=== PATIENT | male | born 1960 | race Hispanic/Latino ===

== ENCOUNTER 2024-12-15 18:17 | Inpatient (IN) | payer SELFPAY ==
[~2024-12-15] VITALS: Ht 160 cm; Wt 63.5 kg
[2024-12-15] MEDS ORDERED: SODIUM CHLORIDE FLUSH 10 ML SYR IV PRN (19:00)
[2024-12-15 19:07] LABS: BASOPHILS % 0.2 % (0.0-1.0); EOSINOPHILS % 0.1 % (0.0-6.0); HEMATOCRIT 47.1 % (38.2-49.6); HEMOGLOBIN 16.5 g/dL (14.0-18.0); LYMPHOCYTES # (AUTO) 1.7 (1.0-3.2); LYMPHOCYTES % 10.1 % (18.0-39.1); MEAN CORPUSCULAR HEMOGLOBIN 31.7 pg (28-32); MEAN CORPUSCULAR VOLUME 90.6 fL (81-99); MONOCYTES # (AUTO) 1.1 (0.2-0.8); MONOCYTES % 6.4 % (4.4-11.3); NEUTROPHILS # (AUTO) 14.3 (2.1-6.9); NEUTROPHILS % 82.9 % (38.7-80.0); PLATELET COUNT 399 x10e3/uL (140-360); RED CELL DISTRIBUTION WIDTH 13.1 % (11.7-14.4); WHITE BLOOD COUNT 17.21 x10e3/uL (4.8-10.8)
[2024-12-15] MEDS: ONDANSETRON HCL INJ 2MG/ML 2ML 2 MG/ML VIAL IV STA (19:11)
[2024-12-15] MEDS: SODIUM CHLORIDE 0.9% 1000ML 1,000 ML IV ONE (19:11)
[2024-12-15 19:24] LABS: ALBUMIN 4.3 g/dL (3.5-5.0); ANION GAP 18.7 mmol/L (8-16); BILIRUBIN,TOTAL 1.5 mg/dL (0.2-1.2); CALCIUM 10.2 mg/dL (8.4-10.2); CREATININE, SERUM 0.97 mg/dL (0.72-1.25); POTASSIUM 3.7 mmol/L (3.5-5.1); TOTAL PROTEIN 8.6 g/dL (6.5-8.1)
[2024-12-15 21:17] LABS: BILIRUBIN,URINE NEGATIVE (NEGATIVE); CLARITY,URINE CLEAR (CLEAR); COLOR,URINE YELLOW (YELLOW); GLUCOSE, URINE NEGATIVE (NEGATIVE); KETONES,URINE NEGATIVE (NEGATIVE); LEUKOCYTE ESTERASE ,URINE NEGATIVE (NEGATIVE); NITRITE,URINE NEGATIVE (NEGATIVE); PH,URINE 8.5 (5 - 7); PROTEIN,URINE DIPSTICK 1+ (NEGATIVE); URINE UROBILINOGEN 0.2 mg/dL (0.2 - 1)
[2024-12-15] MEDS ORDERED: IOPAMIDOL 370 MG/ML 100 ML INFUS..BTL INJ ONE (21:17)
[2024-12-15 21:19] LABS: BACTERIA,URINE RARE /HPF; EPITHELIAL CELLS,URINE FEW /LPF; HYALINE CASTS 0-1 (0-1); MUCUS,URINE FEW; RBC,URINE 0-5 /HPF (0-5); WBC,URINE (MAN) 0-5 /HPF (0-5)
[2024-12-15 21:53] VITALS: TEMP 98.7
[2024-12-15 22:00] VITALS: PULSE 95; RESP 18; O2SAT 100
[2024-12-15] MEDS ORDERED: ONDANSETRON HCL INJ 2MG/ML 2ML 2 MG/ML VIAL IV PRN (22:00)
[2024-12-15 23:00] VITALS: PULSE 89; RESP 18
[2024-12-15 23:45] VITALS: BP 112/73; PULSE 70; RESP 20; TEMP 98.6; O2SAT 99
[2024-12-16] VITALS (9 sets, daily range): BP systolic 99–119; BP diastolic 62–85; PULSE 64–98; RESP 17–20; TEMP 97.3–98.6; O2SAT 96–100
[2024-12-16] MEDS: SODIUM CHLORIDE 0.9% 1000ML 1,000 ML IV SCH (00:07)
[2024-12-16] MEDS: METOCLOPRAMIDE HCL 10 MG/2ML VIAL IV SCH (00:07)
[2024-12-16 05:24] LABS: BASOPHILS % 0.3 % (0.0-1.0); EOSINOPHILS # (AUTO) 0.1 (0.0-0.4); EOSINOPHILS % 0.6 % (0.0-6.0); HEMATOCRIT 40.5 % (38.2-49.6); HEMOGLOBIN 13.4 g/dL (14.0-18.0); LYMPHOCYTES # (AUTO) 2.7 (1.0-3.2); LYMPHOCYTES % 20.6 % (18.0-39.1); MEAN CORPUSCULAR HEMOGLOBIN 31.3 pg (28-32); MEAN CORPUSCULAR HGB CONC 33.1 g/dL (31-35); MEAN CORPUSCULAR VOLUME 94.6 fL (81-99); MONOCYTES # (AUTO) 1.5 (0.2-0.8); MONOCYTES % 11.1 % (4.4-11.3); NEUTROPHILS # (AUTO) 8.8 (2.1-6.9); PLATELET COUNT 275 x10e3/uL (140-360); RED BLOOD COUNT 4.28 x10e6/uL (4.3-5.7); RED CELL DISTRIBUTION WIDTH 13.2 % (11.7-14.4); WHITE BLOOD COUNT 13.15 x10e3/uL (4.8-10.8)
[2024-12-16 05:59] LABS: ALBUMIN 3.2 g/dL (3.5-5.0); ANION GAP 11.6 mmol/L (8-16); BILIRUBIN,TOTAL 1.3 mg/dL (0.2-1.2); CALCIUM 8.7 mg/dL (8.4-10.2); CREATININE, SERUM 0.86 mg/dL (0.72-1.25); POTASSIUM 3.6 mmol/L (3.5-5.1); TOTAL PROTEIN 6.3 g/dL (6.5-8.1)
[2024-12-17] VITALS (7 sets, daily range): BP systolic 97–143; BP diastolic 62–97; PULSE 60–95; RESP 18–19; TEMP 97.5–97.9; O2SAT 100
[2024-12-17 05:30] LABS: BASOPHILS # (AUTO) 0.1 (0.0-0.1); BASOPHILS % 0.5 % (0.0-1.0); EOSINOPHILS # (AUTO) 0.1 (0.0-0.4); EOSINOPHILS % 1.5 % (0.0-6.0); HEMATOCRIT 36.8 % (38.2-49.6); HEMOGLOBIN 12.1 g/dL (14.0-18.0); LYMPHOCYTES # (AUTO) 2.9 (1.0-3.2); LYMPHOCYTES % 31.8 % (18.0-39.1); MEAN CORPUSCULAR HEMOGLOBIN 31.8 pg (28-32); MEAN CORPUSCULAR HGB CONC 32.9 g/dL (31-35); MEAN CORPUSCULAR VOLUME 96.8 fL (81-99); MONOCYTES # (AUTO) 0.8 (0.2-0.8); MONOCYTES % 9.1 % (4.4-11.3); NEUTROPHILS # (AUTO) 5.2 (2.1-6.9); NEUTROPHILS % 56.8 % (38.7-80.0); PLATELET COUNT 250 x10e3/uL (140-360); RED CELL DISTRIBUTION WIDTH 13.2 % (11.7-14.4); WHITE BLOOD COUNT 9.13 x10e3/uL (4.8-10.8)
[2024-12-17 06:01] LABS: ANION GAP 12.7 mmol/L (8-16); CALCIUM 8.4 mg/dL (8.4-10.2); CREATININE, SERUM 0.73 mg/dL (0.72-1.25); POTASSIUM 3.7 mmol/L (3.5-5.1)
[2024-12-17 06:26] LABS: PHOSPHORUS 2.6 MG/DL (2.3-4.7)
[2024-12-17 06:31] LABS: FOLATE 6.8 ng/mL (7.0-15.4)
[2024-12-17] MEDS ORDERED: PROPOFOL IV EMULSION 10 MG/ML 20 ML VIAL ONE (18:17)
[2024-12-17] MEDS ORDERED: LIDOCAINE HCL 2% LOCAL INJ 5 ML SDV VIAL INJ ONE (18:17)
[2024-12-17] MEDS ORDERED: FENTANYL CITRATE/PF 100MCG/2 ML INJ ONE (18:17)
[2024-12-18] VITALS: BP 124/61; PULSE 94; RESP 17; TEMP 97.9; O2SAT 100
[2024-12-18 04:00] VITALS: BP 106/63; PULSE 80; RESP 18; TEMP 96.8; O2SAT 100
[2024-12-18 08:00] VITALS: BP 102/67; PULSE 80; RESP 17; TEMP 98.1; O2SAT 99
[2024-12-18] MEDS: METOCLOPRAMIDE HCL 10 MG/2ML VIAL IV SCH (12:48)
[2024-12-18 16:00] VITALS: BP 106/73; PULSE 74; RESP 19; TEMP 98.2; O2SAT 100
[2024-12-18 20:00] VITALS: BP 117/82; PULSE 89; RESP 20; TEMP 97.6; O2SAT 100
[2024-12-19] VITALS (7 sets, daily range): BP systolic 95–119; BP diastolic 61–77; PULSE 67–94; RESP 18–20; TEMP 97.6–98; O2SAT 97–100
[2024-12-19 06:39] LABS: BASOPHILS % 0.4 % (0.0-1.0); EOSINOPHILS # (AUTO) 0.1 (0.0-0.4); EOSINOPHILS % 0.6 % (0.0-6.0); HEMATOCRIT 34.6 % (38.2-49.6); HEMOGLOBIN 12.1 g/dL (14.0-18.0); LYMPHOCYTES # (AUTO) 1.6 (1.0-3.2); LYMPHOCYTES % 18.3 % (18.0-39.1); MEAN CORPUSCULAR VOLUME 91.5 fL (81-99); MONOCYTES # (AUTO) 0.7 (0.2-0.8); MONOCYTES % 7.7 % (4.4-11.3); NEUTROPHILS # (AUTO) 6.5 (2.1-6.9); NEUTROPHILS % 72.7 % (38.7-80.0); PLATELET COUNT 293 x10e3/uL (140-360); RED BLOOD COUNT 3.78 x10e6/uL (4.3-5.7); RED CELL DISTRIBUTION WIDTH 13.1 % (11.7-14.4); WHITE BLOOD COUNT 8.94 x10e3/uL (4.8-10.8)
[2024-12-19 07:33] LABS: ANION GAP 11.7 mmol/L (8-16); CALCIUM 8.6 mg/dL (8.4-10.2); CREATININE, SERUM 0.72 mg/dL (0.72-1.25); POTASSIUM 3.7 mmol/L (3.5-5.1)
[2024-12-20] VITALS (7 sets, daily range): BP systolic 94–118; BP diastolic 66–76; PULSE 70–76; RESP 18–20; TEMP 97.4–98.4; O2SAT 100
[2024-12-21] VITALS: BP 105/64; PULSE 66; RESP 18; TEMP 98.1; O2SAT 100
[2024-12-21 01:03] VITALS: BP 105/64; PULSE 66; RESP 18; TEMP 98.1; O2SAT 100
[2024-12-21 03:29] VITALS: BP 103/65; PULSE 76; RESP 18; TEMP 97.6; O2SAT 100
[2024-12-21 05:07] LABS: BASOPHILS % 0.4 % (0.0-1.0); EOSINOPHILS # (AUTO) 0.1 (0.0-0.4); EOSINOPHILS % 1.5 % (0.0-6.0); HEMATOCRIT 38.8 % (38.2-49.6); HEMOGLOBIN 13.1 g/dL (14.0-18.0); LYMPHOCYTES # (AUTO) 2.1 (1.0-3.2); MEAN CORPUSCULAR HEMOGLOBIN 31.7 pg (28-32); MEAN CORPUSCULAR HGB CONC 33.8 g/dL (31-35); MEAN CORPUSCULAR VOLUME 93.9 fL (81-99); MONOCYTES % 10.9 % (4.4-11.3); NEUTROPHILS # (AUTO) 5.8 (2.1-6.9); NEUTROPHILS % 63.9 % (38.7-80.0); PLATELET COUNT 293 x10e3/uL (140-360); RED BLOOD COUNT 4.13 x10e6/uL (4.3-5.7); RED CELL DISTRIBUTION WIDTH 13.1 % (11.7-14.4); WHITE BLOOD COUNT 9.07 x10e3/uL (4.8-10.8)
[2024-12-21 05:44] LABS: ANION GAP 14.2 mmol/L (8-16); CREATININE, SERUM 0.8 mg/dL (0.72-1.25)
[2024-12-21 06:00] LABS: POTASSIUM 4.2 mmol/L (3.5-5.1)
[2024-12-21 06:39] VITALS: BP 106/66; PULSE 80; RESP 18; TEMP 98.2; O2SAT 100
[2024-12-21 09:47] VITALS: BP 106/66; PULSE 80; RESP 18; TEMP 98.2; O2SAT 100
== END 2024-12-21 12:17 | disposition home or self-care (01) | DRG 384 ==
LOC: ER 18:54 → ERHOLD 21:56 → MED/SURG3 12-16 00:24 → OBSVTOIN 12-17 23:58
PROVIDERS: ADMIT Internal Medicine; ATTEND Internal Medicine
PROC: 0DB78ZX Excision of Stomach, Pylorus, Via Natural or Artificial Opening Endoscopic, Diagnostic (ICD-10-PCS; principal; 2024-12-17 18:30)
DX: K26.9 Duodenal ulcer, unspecified as acute or chronic, without hemorrhage or perforation (principal); K22.10 Ulcer of esophagus without bleeding; K31.1 Adult hypertrophic pyloric stenosis; K29.80 Duodenitis without bleeding; K29.50 Unspecified chronic gastritis without bleeding; T18.2XXA Foreign body in stomach, initial encounter; W44.F3XA Food entering into or through a natural orifice, initial encounter; Y92.009 Unspecified place in unspecified non-institutional (private) residence as the place of occurrence of the external cause; K59.00 Constipation, unspecified; F17.210 Nicotine dependence, cigarettes, uncomplicated; Z71.81 Spiritual or religious counseling
CPT/HCPCS: 36415; 43239; 71045; 74018; 74019; 74177; 80048; 80053; 81001; 82607; 82746; 82948; 83036; 83605; 83690; 83735; 84100; 84484; 85025; 87040; 87086; 88305; 93005; 94799; 99284; G0378; J2003; J2405; J2470; J2543; J2765; J7030; Q9967